=== PATIENT | male | born 1995 | race Caucasian/White ===

== ENCOUNTER 2017-06-29 18:27 | Emergency (ER) | payer MEDICAID ==
[~2017-06-29] VITALS: Ht 167.6 cm; Wt 66.0 kg
[2017-06-29] MEDS ORDERED: IBUPROFEN 600MG TABLET PO ONE (20:00)
[2017-06-29 20:35] VITALS: BP 128/83
== END 2017-06-29 20:38 | disposition home or self-care (01) ==
LOC: ER 20:11
DX: J06.9 Acute upper respiratory infection, unspecified (principal); F17.210 Nicotine dependence, cigarettes, uncomplicated
CPT/HCPCS: 87070; 87430; 99283; A4217; Z7610